=== PATIENT | female | born 1930 | race Caucasian/White ===

== ENCOUNTER 2017-01-27 16:55 | Emergency (ER) | payer MEDICARE, BC ==
--- NOTE | 2017-01-27 18:12 | EDM.PDOC ---
ED HPI GENERAL MEDICAL PROBLEM - General Chief Complaint: Abdominal Pain Stated Complaint: PULLED MUSCLE IN CHEST WALL Time Seen by Provider: 01/27/17 17:43 Source of Information: Reports: Patient History Limitations: Reports: No Limitations - History of Present Illness INITIAL COMMENTS - FREE TEXT/NARRATIVE: Patient presents with left inferolateral rib/chest wall pain that started today when she was reaching for something. She felt a tearing sensation; this happened twice. She wonders if she broke a rib. No dyspnea, cough, chest pain or vomiting. She says her blood pressure is normally 120/90 and she takes no antihypertensives. Treatments CINDER BLOCK [place]ON: Reports: NSAIDS Left Lower Thoracic Pain Score (Numeric/FACES): 8 - Related Data Allergies Allergy/AdvReac Type Severity Reaction Status Date / Time Sulfa (Sulfonamide Allergy Edema Verified 01/27/17 17:19 Antibiotics) Home Meds: Home Meds Aspirin [Lo-Dose Aspirin EC] 81 mg PO BEDTIME 01/27/17 [History] Ibuprofen [Advil] 400 mg PO Q8H PRN 01/27/17 [History] Social & Family History - Tobacco Use Smoking Status *Q: Former Smoker Used Tobacco, but Quit: Yes Month Tobacco Last Used: October Second Hand Smoke Exposure: No - Caffeine Use Caffeine Use: Reports: Coffee, Tea - Recreational Drug Use Recreational Drug Use: No ED ROS GENERAL - Review of Systems Review Of Systems: See Below Constitutional: Denies: Fever, Chills HEENT: Reports: No Symptoms Respiratory: Denies: Shortness of Breath, Cough Cardiovascular: Denies: Chest Pain, Lightheadedness, Syncope GI/Abdominal: Denies: Abdominal Pain, Constipation, Diarrhea, Vomiting : Denies: Dysuria Musculoskeletal: Reports: No Symptoms Skin: Denies: Cyanosis, Jaundice, Mottled, Pallor, Diaphoresis Neurological: Denies: Confusion, Dizziness, Headache, Trouble Speaking, Difficulty Walking Psychiatric: Denies: Agitation, Anxiety, Confusion ED EXAM, GENERAL - Physical Exam Exam: See Below Exam Limited By: No Limitations General Appearance: Alert, WD/WN, No Apparent Distress Eye Exam: Bilateral Eye: EOMI, Normal Inspection, PERRL Ears: Normal External Exam, Hearing Grossly Normal Nose: Normal Inspection, No Blood Throat/Mouth: Normal Inspection, Normal Lips, Normal Voice, No Airway Compromise Head: Atraumatic, Normocephalic Neck: Normal Inspection, Supple, Non-Tender, Full Range of Motion Respiratory/Chest: No Respiratory Distress, Lungs Clear, Normal Breath Sounds, Other (Tender to palpation of inferolateral ribcage just below lateral breast and extending slightly posterior. No crepitus or deformity evident.) Cardiovascular: Normal Peripheral Pulses, Regular Rate, Rhythm, No Murmur Peripheral Pulses: 2+: Carotid (L), Carotid (R), Radial (L), Radial (R) GI/Abdominal: Soft, No Distention Back Exam: CVA Tenderness (L). No: CVA Tenderness (R) Neurological: Alert, Oriented, Normal Cognition, No Motor/Sensory Deficits Psychiatric: Normal Affect, Normal Mood Skin Exam: Warm, Dry, Intact, Normal Color, No Rash Course - Vital Signs Last Recorded V/S: Last Vital Signs Temp 98.1 F 01/27/17 16:57 Pulse 90 01/27/17 16:57 Resp 18 01/27/17 16:57 BP 199/79 H 01/27/17 18:12 Pulse Ox 95 01/27/17 16:57 - Orders/Labs/Meds Orders: Active Orders 24 hr Category Date Time Status Ribs 2V w Chest Lt [CR] Stat Exams 01/27/17 17:50 Ordered - Re-Assessments/Exams Free Text/Narrative Re-Assessment/Exam: 01/27/17 18:43 Xrays show no evidence of rib fracture or other acute pathology. Incidentally there is a benign-appearing lesion, likely chondroma, on the left humerus. I informed her she should give this report to her PCP and can be rechecked if needed. Blood pressure came down to 199/79 and I recommended giving something to bring this down some. She declined as she thinks it is just her pain and stress today. She had it checked 1 or 2 days ago and it was 120/90. Discussed findings and treatment plan and patient was discharged in stable condition. Departure - Departure Time of Disposition: 18:40 Disposition: Home, Self-Care 01 Condition: Good Clinical Impression: Chest wall muscle strain Qualifiers: Encounter type: initial encounter Qualified Code(s): S29.011A - Strain of muscle and tendon of front wall of thorax, initial encounter - Discharge Information Forms: ED Department Discharge Additional Instructions: 1. Take your Advil as needed, up to 600 mg three times a day. 2. Follow up with your PCP in the next 1-2 weeks for recheck on your blood pressure. 3. Return to ER as needed. - My Orders Last 24 Hours: My Active Orders 01/27/17 17:50 Ribs 2V w Chest Lt [CR] Stat - Assessment/Plan Last 24 Hours: My Active Orders 01/27/17 17:50 Ribs 2V w Chest Lt [CR] Stat
[2017-01-27 18:18] VITALS: BP 199/79
== END 2017-01-27 18:50 | disposition home or self-care (01) ==
LOC: KA.ED 16:55
DX: S29.011A Strain of muscle and tendon of front wall of thorax, initial encounter (principal); Z88.2 Allergy status to sulfonamides; Z79.82 Long term (current) use of aspirin; Z87.891 Personal history of nicotine dependence; X58.XXXA Exposure to other specified factors, initial encounter
CPT/HCPCS: 71101-LT; 99284